=== PATIENT | male | born 1990 | race Caucasian/White ===

== ENCOUNTER 2017-08-10 03:12 | Emergency (ER) | payer MEDICAID ==
[~2017-08-10] VITALS: Ht 167.6 cm; Wt 74.8 kg
[~2017-08-10 03:12] MED LIST: AMOXIL500 MG PO; HYDROCODONE1 TABLET PO; LORTAB 5/500 501 TAB PO; PEN-VK500 MG PO
[2017-08-10 04:14] LABS: HEMOGLOBIN 12.3 g/dL (14.1-18.0); LYMPH # 0.9 K/mm3 (0.7-4.5)
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
[2017-08-10 04:56] LABS: NEUTROPHILS 78 % (42-76)
[2017-08-10 07:44] VITALS: BP 103/75
== END 2017-08-10 07:45 | disposition home or self-care (01) ==
LOC: ER 03:12
PROVIDERS: Emergency Medicine
DX: T40.1X1A Poisoning by heroin, accidental (unintentional), initial encounter (principal); E87.6 Hypokalemia; F11.10 Opioid abuse, uncomplicated; Y92.002 Bathroom of unspecified non-institutional (private) residence as the place of occurrence of the external cause; F17.210 Nicotine dependence, cigarettes, uncomplicated
CPT/HCPCS: J2310

== ENCOUNTER 2017-08-11 17:08 | Emergency (ER) | payer MEDICAID ==
[~2017-08-11] VITALS: Ht 167.6 cm; Wt 72.6 kg
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
[2017-08-11 17:49] VITALS: BP 142/80
== END 2017-08-11 17:50 | disposition home or self-care (01) ==
LOC: ER 17:08
DX: T40.1X1A Poisoning by heroin, accidental (unintentional), initial encounter (principal); F11.10 Opioid abuse, uncomplicated; Z53.21 Procedure and treatment not carried out due to patient leaving prior to being seen by health care provider; Y92.009 Unspecified place in unspecified non-institutional (private) residence as the place of occurrence of the external cause